=== PATIENT | female | born 1990 | race Caucasian/White ===

== ENCOUNTER → 2017-05-09 | Outpatient (CLI) | payer OTHER ==
[~2017-05-09] VITALS: Ht 158.8 cm; Wt 86.8 kg
[2017-05-09 17:06] VITALS: BP 118/60
== END | disposition home or self-care (01) ==
LOC: IVINF 16:53
DX: Z31.82 Encounter for Rh incompatibility status (principal); Z3A.28 28 weeks gestation of pregnancy; Z67.11 Type A blood, Rh negative
CPT/HCPCS: 96372; J2790

== ENCOUNTER 2017-07-26 07:28 | Inpatient (IN) | payer OTHER ==
[~2017-07-26] VITALS: Ht 157.5 cm; Wt 97.9 kg
[2017-07-26 09:25] VITALS: BP 122/76
[2017-07-26] MEDS ORDERED: IBUPROFEN800 MG PO (13:24)
[2017-07-26] MEDS ORDERED: ENDOCET 5-3251 EACH PO (13:24)
[2017-07-26 16:26] VITALS: BP 103/50
[2017-07-26 18:26] VITALS: BP 100/56
[2017-07-26 20:42] VITALS: BP 107/51
[2017-07-26 22:34] VITALS: BP 102/46
[2017-07-27] VITALS (7 sets, daily range): BP systolic 101–115; BP diastolic 54–65
[2017-07-27 07:08] LABS: BASOPHIL COUNT 0.1 K/uL (0-0.1); EOSINOPHIL (%) 1.6 % (0-5); EOSINOPHIL COUNT 0.2 K/uL (0-0.3); HEMATOCRIT 29.8 % (36.0-46.0); IMMATURE GRANULOCYTE (%) 0.5 % (0.0-0.7); IMMATURE GRANULOCYTE COUNT 0.1 K/uL; INSTRUMENT ABS NEUTROPHIL CT 7.2 K/uL; LYMPHOCYTE COUNT 2.6 K/uL (1.0-2.8); MCH 33.2 PG (29.0-34.0); MCHC 34.6 G/DL (30.0-36.0); MCV 96.1 FL (83-99); MEAN PLAT.VOLUME 11.1 uM^3 (9.5-12.4); MONOCYTE (%) 8.1 % (3-12); MONOCYTE COUNT 0.9 K/uL (0-0.8); NEUTROPHIL (%) 65.3 % (45-76); NEUTROPHIL COUNT 7.2 K/uL (1.8-6.4); PLATELET COUNT 158 K/uL (156-360); RBC DIS.WIDTH-CV 12.7 % (11.8-14.6); RBC DIS.WIDTH-SD 43.8 % (39-53)
[2017-07-28 03:31] VITALS: BP 113/59
[2017-07-28 07:57] VITALS: BP 117/56
== END 2017-07-28 11:12 | disposition home or self-care (01) | DRG 766 ==
LOC: 2SOUTH 07:28 → 2WEST 09:04 → 2SOUTH 11:43 → 2WEST 07-28 11:12
PROVIDERS: Obstetrics & Gynecology Gynecology
PROC: 10D00Z1 Extraction of Products of Conception, Low, Open Approach (ICD-10-PCS; principal; 2017-07-26)
DX: O32.1XX0 Maternal care for breech presentation, not applicable or unspecified (principal); O99.214 Obesity complicating childbirth; Z68.30 Body mass index [BMI] 30.0-30.9, adult; Z3A.39 39 weeks gestation of pregnancy; Z37.0 Single live birth; E66.9 Obesity, unspecified; Z87.891 Personal history of nicotine dependence
CPT/HCPCS: 36415; 83030; 85025; 86850; 86870; 86900; 86901; 86905; 86920; J0690; J1170; J1580; J2274; J2405; J2790; J7050; J7120